=== PATIENT | female | born 1995 | race Caucasian/White ===

== ENCOUNTER 2017-01-14 23:28 | Emergency (ER) | payer OTHER ==
[~2017-01-14] VITALS: Ht 157.5 cm; Wt 44.5 kg
[~2017-01-14 23:28] MED LIST: OMEP10SU PO; ONDANSETRON8ODT SL/PO
[2017-01-14 23:37] VITALS: BP 132/86; PULSE 94; RESP 16; O2SAT 95
[2017-01-15 00:16] VITALS: BP 133/82; PULSE 88; RESP 16; O2SAT 96
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
[2017-01-15 02:05] VITALS: BP 115/73; PULSE 72; RESP 18; O2SAT 94
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
== END 2017-01-15 02:06 | disposition home or self-care (01) ==
LOC: SED 23:28 → EDBD 23:28 → SED 01-15 02:06
DX: S06.0X0A Concussion without loss of consciousness, initial encounter (principal); S16.1XXA Strain of muscle, fascia and tendon at neck level, initial encounter; V43.52XA Car driver injured in collision with other type car in traffic accident, initial encounter; Y93.89 Activity, other specified; Y99.8 Other external cause status; Y92.410 Unspecified street and highway as the place of occurrence of the external cause

== ENCOUNTER 2017-02-01 14:55 | Emergency (ER) | payer OTHER ==
[~2017-02-01] VITALS: Ht 157.5 cm; Wt 45.5 kg
[2017-02-01 14:56] VITALS: BP 124/84; PULSE 93; RESP 16; O2SAT 99
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
[2017-02-01] MEDS ORDERED: TdaP Vaccine 0.5 mL Inj IM ONE (15:45)
[2017-02-01 17:05] VITALS: BP 119/79; PULSE 90; RESP 16; O2SAT 99
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
[2017-02-01 19:07] VITALS: BP 119/61; PULSE 82; O2SAT 100
== END 2017-02-01 19:11 | disposition home or self-care (01) ==
LOC: SED 14:55
DX: F07.81 Postconcussional syndrome (principal); R68.84 Jaw pain; H53.8 Other visual disturbances; Z87.828 Personal history of other (healed) physical injury and trauma
CPT/HCPCS: 70551; 99284; A9585